=== PATIENT | male | born 1935 | race Caucasian/White ===

== ENCOUNTER 2019-10-11 07:08 | Inpatient (IN) | payer MEDICARE, OTHER ==
[~2019-10-11] VITALS: Ht 177.8 cm; Wt 63.6 kg
[2019-10-11] MEDS ORDERED: SODIUM CHLORIDE 0.9% 1,000 ML IV ONE (07:52)
[2019-10-11] MEDS ORDERED: FOLIC ACID 1 MG, THIAMINE HCL 100 MG, MVI, ADULT NO.1 10 ML in DEXTROSE 5% WATER 1,000 ML IV ONE ×4 (08:00)
[2019-10-11] MEDS ORDERED: LORAZEPAM 2MG/ML CPJ IV ONE (08:00)
[2019-10-11 08:12] LABS: BASOPHILS % 0.6 % (0.0-2.0); EOSINOPHILS % 0.4 % (0.0-5.0); HEMATOCRIT. 41.4 % (42.0-52.0); HEMOGLOBIN. 14.2 g/dL (14.0-18.0); LYMPHOCYTES % 13.8 % (20.0-50.0); MEAN CORPUSCULAR HEMOGLOBIN 34.7 pg (28.0-32.0); MEAN CORPUSCULAR VOLUME 101.1 fL (80.0-94.0); MEAN PLATELET VOLUME 8.5 fl (7.4-10.4); MONOCYTES % 5.8 % (2.0-8.0); NEUTROPHILS % 79.4 % (40.0-76.0); PLATELET 137 x1000/uL (130-400); RED CELL DISTRIBUTION WIDTH 13.1 % (11.6-14.6)
[2019-10-11 08:21] LABS: CHLORIDE 110 mEq/L (98-107); PARTIAL THROMBOPLASTIN TIME 24.7 sec (23.4-31.0); PROTHROMBIN TIME 10.5 sec (9.6-11.0)
[2019-10-11 08:24] LABS: ETHANOL BLOOD < 10 mg/dL
[2019-10-11] MEDS ORDERED: ASPIRIN 325MG EC TABLET PO ONE (09:15)
[2019-10-11 09:25] LABS: CLARITY URINE CLEAR (CLEAR); COLOR URINE YELLOW (YELLOW); KETONES URINE NEGATIVE (NEGATIVE); LEUKOCYTE ESTERASE URINE NEGATIVE (NEGATIVE); NITRITE URINE NEGATIVE (NEGATIVE); OCCULT BLOOD URINE NEGATIVE (NEGATIVE); PROTEIN URINE TRACE (NEGATIVE); SPECIFIC GRAVITY URINE 1.021 (1.005-1.030); UROBILINOGEN URINE 0.2 E.U./dL (0.2-1.0)
[2019-10-11 09:48] LABS: *AMPHETAMINES SCREEN URINE NEGATIVE (NEGATIVE); *BARBITURATES SCREEN URINE NEGATIVE (NEGATIVE); *BENZODIAZEPINES SCREEN URINE NEGATIVE (NEGATIVE); *COCAINE SCREEN URINE NEGATIVE (NEGATIVE); CANNABINOID URINE SCREEN NEGATIVE (NEGATIVE); METHADONE URINE SCREEN NEGATIVE (NEGATIVE); OPIATES URINE SCREEN NEGATIVE (NEGATIVE); PHENCYCLIDINE URINE SCREEN NEGATIVE (NEGATIVE)
[2019-10-11] MEDS ORDERED: GUAIFENESIN 200MG/10ML SUGAR FREE UDC PO PRN (12:15)
[2019-10-11] MEDS ORDERED: ONDANSETRON HCL 4MG/2ML INJ IV PRN (12:15)
[2019-10-11] MEDS ORDERED: IPRATROPIUM/ALBUTEROL 0.5-3(2.5)MG/3ML NEB NEB PRN (12:15)
[2019-10-11] MEDS ORDERED: MAGNESIUM/ALUMINUM HYDROXIDE/SIMETHICONE 30ML UDC PO PRN (12:15)
[2019-10-11] MEDS ORDERED: KETOROLAC 15MG/ML VIAL IV PRN (12:15)
[2019-10-11] MEDS ORDERED: ACETAMINOPHEN 650MG/20.3ML UDC GT PRN (12:15)
[2019-10-11] MEDS ORDERED: NITROGLYCERIN 0.4MG TABLET SL SL PRN (12:15)
[2019-10-11] MEDS ORDERED: CARB1TAB9 MT (12:50)
[2019-10-11] MEDS ORDERED: DONE10TA43 PO (12:50)
[2019-10-11] MEDS ORDERED: ESCI5TAB12 PO (12:50)
[2019-10-11] MEDS ORDERED: TAMS-11 PO (12:50)
[2019-10-11] MEDS ORDERED: LOVA20TA2 PO (12:50)
[2019-10-11] MEDS ORDERED: MVI, ADULT NO.1 10 ML, FOLIC ACID 1 MG, THIAMINE HCL 100 MG in SODIUM CHLORIDE 0.9% 1,0... IV ONE ×4 (13:30)
[2019-10-11] MEDS ORDERED: CHLORDIAZEPOXIDE 25MG CAPSULE PO SCH (14:00)
[2019-10-11 16:26] LABS: T4 FREE 0.93 ng/dL (0.76-1.46)
[2019-10-11 16:28] LABS: CREATINE KINASE 146 IU/L (39-308)
[2019-10-11 16:30] LABS: CREATINE KINASE MB FRACTION 2.7 ng/mL (0.5-3.6)
[2019-10-11 16:40] LABS: FOLIC ACID (FOLATE) SERUM > 20.00 ng/mL (>5.38)
[2019-10-11 16:47] LABS: VITAMIN B12 SERUM 650 pg/mL (211-911)
[2019-10-11 19:09] VITALS: BP 153/78
[2019-10-11 20:00] VITALS: BP 160/75
[2019-10-11 20:01] VITALS: BP 160/75
[2019-10-11 21:13] VITALS: BP 156/77
[2019-10-11] MEDS: ENOXAPARIN 40MG/0.4ML SYR SUBCUT SCH (21:24)
[2019-10-11 22:25] VITALS: BP 152/94
[2019-10-11] MEDS: FAMOTIDINE 20MG TABLET PO SCH (22:44)
[2019-10-11] MEDS: ASCORBIC ACID 500 MG TABLET PO SCH (22:44)
[2019-10-11] MEDS: LORAZEPAM 2MG/ML CPJ IV PRN (22:49)
[2019-10-11 23:35] LABS: CREATINE KINASE MB FRACTION 3.4 ng/mL (0.5-3.6)
[2019-10-11 23:39] LABS: CREATINE KINASE 190 IU/L (39-308)
[2019-10-11 23:40] VITALS: BP 135/63
[2019-10-12] VITALS (12 sets, daily range): BP systolic 101–172; BP diastolic 55–90
[2019-10-12] MEDS: DEXT 5%/LACTATED RINGERS 1,000 ML IV SCH ×2 (01:42→01:52)
[2019-10-12] MEDS: LORAZEPAM 2MG/ML CPJ IV PRN ×3 (03:10→20:29)
[2019-10-12] MEDS: FAMOTIDINE 20MG TABLET PO SCH ×2 (08:39→20:28)
[2019-10-12] MEDS: ASPIRIN 325MG EC TABLET PO SCH (08:39)
[2019-10-12] MEDS: ASCORBIC ACID 500 MG TABLET PO SCH ×2 (08:39→20:28)
[2019-10-12] MEDS: CLONIDINE 0.1MG TABLET PO PRN (12:20)
[2019-10-12] MEDS: CARBIDOPA/LEVODOPA 25/100MG TABLET PO SCH ×2 (12:52→17:01)
[2019-10-12] MEDS: ENOXAPARIN 40MG/0.4ML SYR SUBCUT SCH (20:30)
[2019-10-13] VITALS (12 sets, daily range): BP systolic 105–166; BP diastolic 60–92
[2019-10-13] MEDS: LORAZEPAM 2MG/ML CPJ IV PRN ×2 (07:20→23:45)
[2019-10-13] MEDS: ASPIRIN 325MG EC TABLET PO SCH (09:20)
[2019-10-13] MEDS: ASCORBIC ACID 500 MG TABLET PO SCH ×2 (09:20→20:39)
[2019-10-13] MEDS: FAMOTIDINE 20MG TABLET PO SCH ×2 (09:20→20:39)
[2019-10-13] MEDS: CARBIDOPA/LEVODOPA 25/100MG TABLET PO SCH ×4 (09:20→17:19)
[2019-10-13] MEDS: CLONIDINE 0.1MG TABLET PO PRN (10:30)
[2019-10-13] MEDS: LOSARTAN POTASSIUM 50 MG TABLET PO SCH (10:30)
[2019-10-13] MEDS: DONEPEZIL HCL 10MG TABLET PO SCH (15:00)
[2019-10-13 18:34] LABS: T4 FREE 1.1 ng/dL (0.76-1.46)
[2019-10-13] MEDS: ENOXAPARIN 40MG/0.4ML SYR SUBCUT SCH (20:38)
[2019-10-13] MEDS: TAMSULOSIN HCL 0.4MG SR CAPSULE PO SCH (20:39)
[2019-10-13] MEDS: ATORVASTATIN CALCIUM 10MG TABLET PO SCH (20:39)
[2019-10-14] VITALS (12 sets, daily range): BP systolic 91–172; BP diastolic 36–83
[2019-10-14] MEDS: CARBIDOPA/LEVODOPA 25/100MG TABLET PO SCH ×3 (08:31→17:09)
[2019-10-14] MEDS: ASCORBIC ACID 500 MG TABLET PO SCH ×2 (08:31→20:16)
[2019-10-14] MEDS: FOLIC ACID 1MG TABLET PO SCH (08:31)
[2019-10-14] MEDS: LOSARTAN POTASSIUM 50 MG TABLET PO SCH (08:31)
[2019-10-14] MEDS: DONEPEZIL HCL 10MG TABLET PO SCH (08:31)
[2019-10-14] MEDS: FAMOTIDINE 20MG TABLET PO SCH ×2 (08:31→20:16)
[2019-10-14] MEDS: ASPIRIN 325MG EC TABLET PO SCH (08:31)
[2019-10-14] MEDS: THIAMINE HCL 100MG TABLET PO SCH (08:31)
[2019-10-14] MEDS: MULTIVITAMINS,THER W-MINERALS TABLET PO SCH (08:31)
[2019-10-14] MEDS: DOCUSATE SODIUM 100MG CAPSULE PO PRN (08:32)
[2019-10-14] MEDS: TAMSULOSIN HCL 0.4MG SR CAPSULE PO SCH ×2 (08:32→20:16)
[2019-10-14] MEDS: LORAZEPAM 2MG/ML CPJ IV PRN (19:34)
[2019-10-14] MEDS: CARVEDILOL 3.125 MG TABLET PO SCH (20:06)
[2019-10-14] MEDS: ENOXAPARIN 40MG/0.4ML SYR SUBCUT SCH (20:16)
[2019-10-14] MEDS: ATORVASTATIN CALCIUM 10MG TABLET PO SCH (20:16)
[2019-10-14 20:24] LABS: BASOPHILS % 0.2 % (0.0-2.0); EOSINOPHILS % 1.1 % (0.0-5.0); HEMATOCRIT. 37.5 % (42.0-52.0); HEMOGLOBIN. 12.9 g/dL (14.0-18.0); LYMPHOCYTES % 14.9 % (20.0-50.0); MEAN CORPUSCULAR HEMOGLOBIN 34.4 pg (28.0-32.0); MEAN CORPUSCULAR VOLUME 99.5 fL (80.0-94.0); MEAN PLATELET VOLUME 8.9 fl (7.4-10.4); MONOCYTES % 9.1 % (2.0-8.0); NEUTROPHILS % 74.7 % (40.0-76.0); PLATELET 146 x1000/uL (130-400); RED BLOOD CELL COUNT 3.76 mill/uL (4.7-6.1); RED CELL DISTRIBUTION WIDTH 12.9 % (11.6-14.6)
[2019-10-14] MEDS: DEXT 5%/0.45% NACL 1000ML 1,000 ML IV SCH (21:24)
[2019-10-15] VITALS (9 sets, daily range): BP systolic 90–139; BP diastolic 42–81
[2019-10-15] MEDS: THIAMINE HCL 100MG TABLET PO SCH (08:42)
[2019-10-15] MEDS: LOSARTAN POTASSIUM 50 MG TABLET PO SCH (08:42)
[2019-10-15] MEDS: FOLIC ACID 1MG TABLET PO SCH (08:42)
[2019-10-15] MEDS: ASCORBIC ACID 500 MG TABLET PO SCH (08:42)
[2019-10-15] MEDS: TAMSULOSIN HCL 0.4MG SR CAPSULE PO SCH (08:42)
[2019-10-15] MEDS: FAMOTIDINE 20MG TABLET PO SCH (08:43)
[2019-10-15] MEDS: ASPIRIN 325MG EC TABLET PO SCH (08:43)
[2019-10-15] MEDS: MULTIVITAMINS,THER W-MINERALS TABLET PO SCH (08:43)
[2019-10-15] MEDS: DOCUSATE SODIUM 100MG CAPSULE PO PRN (08:43)
[2019-10-15] MEDS: CARVEDILOL 3.125 MG TABLET PO SCH (08:43)
[2019-10-15] MEDS: CARBIDOPA/LEVODOPA 25/100MG TABLET PO SCH ×2 (08:59→13:12)
[2019-10-15] MEDS: DEXT 5%/0.45% NACL 1000ML 1,000 ML IV SCH (09:00)
[2019-10-15] MEDS: DONEPEZIL HCL 10MG TABLET PO SCH (09:08)
[2019-10-15] MEDS ORDERED: ASPI-1497 MT (16:02)
[2019-10-16] MEDS ORDERED: FAMOTIDINE 20MG TABLET PO SCH (09:00)
== END 2019-10-15 16:05 | disposition home health service (06) | DRG 64 ==
LOC: ER 07:08 → 3WST 10:33 → SUPCPDRO 11:59 → ENRESERV 18:41
PROVIDERS: ADMIT Internal Medicine; ATTEND Internal Medicine
PROC: 4A00X4Z Measurement of Central Nervous Electrical Activity, External Approach (ICD-10-PCS; principal; 2019-10-14)
DX: I63.9 Cerebral infarction, unspecified (principal); G92 Toxic encephalopathy; G82.50 Quadriplegia, unspecified; I50.33 Acute on chronic diastolic (congestive) heart failure; R47.01 Aphasia; J44.9 Chronic obstructive pulmonary disease, unspecified; G20 Parkinson's disease; F02.80 Dementia in other diseases classified elsewhere, unspecified severity, without behavioral disturbance, psychotic disturbance, mood disturbance, and anxiety; G30.9 Alzheimer's disease, unspecified; E78.00 Pure hypercholesterolemia, unspecified; R26.9 Unspecified abnormalities of gait and mobility; I11.0 Hypertensive heart disease with heart failure; N40.0 Benign prostatic hyperplasia without lower urinary tract symptoms; R13.10 Dysphagia, unspecified; Z87.891 Personal history of nicotine dependence; Z79.899 Other long term (current) drug therapy
CPT/HCPCS: 36415; 71045; 80048; 80053; 80061; 80305; 80320; 81003; 82140; 82390; 82550; 82553; 82607; 82746; 83036; 83540; 83550; 83735; 83880; 84439; 84443; 84481; 84484; 85025; 86850; 86900; 92610; 93005; 93306; 93970; 96365; 97110; 97162; 97166; 99291; J1650; J1885; J2060; J3411; J3490; J7030; J7070; G0480